=== PATIENT | female | born 1955 | race Caucasian/White ===

== ENCOUNTER → 2016-06-03 | Outpatient (CLI) | payer BC ==
[~2016-06-03] MED LIST: MODA100T17 PO
== END | disposition home or self-care (01) ==
LOC: C.PAPS 16:49
PROVIDERS: ATTEND Physician Assistant
DX: Z01.419 Encounter for gynecological examination (general) (routine) without abnormal findings (principal); N95.2 Postmenopausal atrophic vaginitis

== ENCOUNTER → 2016-09-21 | Outpatient (CLI) | payer BC ==
[~2016-09-21] VITALS: Ht 162.6 cm; Wt 54.1 kg
[~2016-09-21] MED LIST changes: +MODA1TAB6 PO
[2016-09-21 14:21] VITALS: BP 130/75; PULSE 75; Ht 162.6 cm; Wt 54.1 kg
== END | disposition home or self-care (01) ==
LOC: C.NEUR 14:05
PROVIDERS: ATTEND Internal Medicine Pulmonary Disease
DX: F51.11 Primary hypersomnia (principal); F41.9 Anxiety disorder, unspecified; A69.20 Lyme disease, unspecified; I83.93 Asymptomatic varicose veins of bilateral lower extremities

== ENCOUNTER 2016-12-24 11:04 | Emergency (ER) | payer BC ==
[~2016-12-24] VITALS: Ht 162.6 cm; Wt 55.9 kg
[2016-12-24 11:08] VITALS: TEMP 36.8; Ht 162.6 cm; Wt 55.9 kg
[2016-12-24 11:22] VITALS: O2SAT 97
[2016-12-24 12:04] LABS: BASO % 0.3 %; BASO ABS # 0.03 K/uL (0-0.2); COMPLETE YES; EOS % 0.9 %; HEMATOCRIT 40.2 % (37-47); IG% 0.1 %; LYMPH ABS # 1.35 K/uL (1.2-3.4); MEAN CELL VOLUME 89.9 fL (80-100); MEAN CORPUSCULAR HEMOGLOBIN 30.9 pg (25-34); MEAN CORPUSCULAR HGB CONC 34.3 g/dl (32-36); MEAN PLATELET VOLUME 10.1 fL (7.4-10.4); MONO % 6.1 %; NEUT % 77.6 %; PLATELET COUNT 210 K/uL (130-400); RED BLOOD COUNT 4.47 M/uL (4.2-5.4)
[2016-12-24 12:06] LABS: URINE APPEARANCE CLEAR (CLEAR); URINE BILIRUBIN NEG (NEG); URINE COLOR YELLOW; URINE NITRITE NEG (NEG); URINE PH 7.5 (4.5-7.5); URINE SPECIFIC GRAVITY 1.008 (1.000-1.030); UROBILINOGEN NEG (NEG)
[2016-12-24 12:10] LABS: MANUAL MICROSCOPIC REQUIRED? NO; REVIEW REQ? NO
[2016-12-24 12:15] LABS: PARTIAL THROMBOPLASTIN RATIO 1.1; PROTHROMBIN TIME (PATIENT) 10.4 SECONDS (9.0-12.0)
[2016-12-24 12:23] LABS: ALB/GLOB RATIO 1.1 (0.9-2); ALKALINE PHOSPHATASE 48 U/L (45-117); ALT/SGPT 29 U/L (12-78); AST/SGOT 20 U/L (15-37); BLOOD UREA NITROGEN 11 mg/dl (7-18); BUN/CREATININE RATIO 14.3 (10-20); CALCIUM 8.6 mg/dl (8.5-10.1); CARBON DIOXIDE 27 mmol/L (21-32); CHLORIDE 98 mmol/L (98-107); CREATININE 0.77 mg/dl (0.60-1.20); GLUCOSE 99 mg/dl (70-99); POTASSIUM 3.6 mmol/L (3.5-5.1); SODIUM 135 mmol/L (136-145)
--- NOTE | 2016-12-24 13:03 | EMERGENCY ROOM VISIT NOTE ---
History First contact with patient: 11:20 Chief Complaint: ABDOMINAL PAIN Stated Complaint: ABD PAIN,BLADDER INF,DIZZY,HEADACHE,BLOOD IN EAR Nursing Triage Summary: pt awoke this am with lower abd pain, "felt like UTI" pt reports blood in ear and dizzy feeling denies any n/v History of Present Illness Patient is a 61-year-old white female who presents to the emergency department for several complaints, first her primary concern is some lower abdominal discomfort. She's had some minor twinges of low suprapubic pain for a couple of days, but this morning they were worse. She describes it as a very strong, sharp pain in the lower abdomen that did not radiate. She states that it "felt like a UTI." She denies dysuria, frequency, urgency or hematuria however. Today she states the pain was so strong that it "stopped her in her tracks." She denies any associated nausea or vomiting. No changes in her bowel movements. She presently rates her discomfort a 0/10. She has had a colonoscopy in the past, reports that it was benign. She is on Modafinil for hypersomnia and did not take this today. Patient secondly she also notes that she was intermittently dizzy this morning. She describes it as a was the sensation. She denies feeling near syncopal. She has a mild generalized headache. She denies any chest pain, palpitations or shortness of breath. Thirdly, patient reports that after she showered, she cleaned her years with a Q -tip, and noted blood on the Q-tip from the right ear. She also states that when she touched the outer canal, there was blood. She denies any ear pain or changes in her hearing. She does not have any symptoms in the left ear. Patient's PCP has left the area, and she is going to try to get in with her OB/ [facility] for evaluation of the abdominal discomfort, but because of her other symptoms they sent her to the emergency department. Review of Systems Review of systems as per HPI. All other systems reviewed were negative. 10 systems reviewed. Past Medical/Surgical History Medical Problems: (1) Anxiety Disorder, Unspecified (2) Organic Hypersomnia, Unspecified Electronic medical records are reviewed and summarized as above/below. See Problem List. Social History Smoking Status: Former Smoker Occupation Status: employed Current/Historical Medications Scheduled Modafinil (Provigil), 1 TAB PO DAILY Physical Exam Vital Signs Date Time Temp Pulse Resp B/P (MAP) Pulse Ox O2 Delivery O2 Flow Rate FiO2 12/24/16 13:11 65 18 106/65 97 Room Air 12/24/16 12:36 65 16 108/65 97 Room Air 12/24/16 12:11 60 12/24/16 11:22 97 Room Air 12/24/16 11:18 67 128/68 70 137/73 69 124/77 12/24/16 11:08 36.8 71 20 135/65 97 Room Air Physical Exam CONSTITUTIONAL: Patient is a well-appearing 61-year-old white female who is awake and alert and in no acute distress EYES: Pupils equal, round, reactive to light and accommodation. EOMs intact without nystagmus. Sclera are anicteric. ENT: Tympanic membranes intact, with normal landmarks. There is some bright red blood in the inferior of the right ear canal. There is no active bleeding. No obvious source. External canals are clear. Oral and nasopharynx are clear. Mucous membranes are moist, no lesions, tongue and gums appear normal. NECK: No bruits auscultated. Supple without lymphadenopathy. No thyromegaly. No meningeal signs. Full active range of motion without discomfort. CARDIOVASCULAR: Regular rate and rhythm, with normal S1 and S2, no murmur or gallop or rub is heard. No carotid bruits auscultated. No JVD. Peripheral pulses easy to palpable. RESPIRATORY: Breath sounds equal and clear to auscultation without wheezes, rales, or rhonchi heard. Full and equal chest expansion without accessory muscle use or retractions. GI: Bowel sounds are present. Abdomen is soft, nontender, nondistended. No organomegaly. No pulsatile masses. No guarding or rebound. MUSCULOSKELETAL: Full range of motion of extremities x 4 with good strength. No cyanosis, edema, joint tenderness or swelling. No deformity. INTEGUMENTARY: No lesions or rash, normal skin turgor. NEUROLOGICAL: Alert, oriented, and cooperative. Cranial nerves, sensation and strength grossly intact. Pupils round, equal, and react to light, EOMs are full. Normal gait. Negative Romberg and pronator drift. Finger to nose testing is within normal limits. LYMPH: No lymphadenopathy. Medical Decision & Procedures Laboratory Results 12/24/16 11:25 Red Blood Count 4.47, Mean Corpuscular Volume 89.9, Mean Corpuscular Hemoglobin 30.9, Mean Corpuscular Hemoglobin Concent 34.3, Mean Platelet Volume 10.1, Neutrophils (%) (Auto) 77.6, Lymphocytes (%) (Auto) 15.0, Monocytes (%) (Auto) 6.1, Eosinophils (%) (Auto) 0.9, Basophils (%) (Auto) 0.3, Neutrophils # (Auto) 6.98, Lymphocytes # (Auto) 1.35, Monocytes # (Auto) 0.55, Eosinophils # (Auto) 0.08, Basophils # (Auto) 0.03 12/24/16 11:25 Test 12/24/16 11:20 12/24/16 11:25 Urine Color YELLOW Urine Appearance CLEAR (CLEAR) Urine pH 7.5 (4.5-7.5) Urine Specific [place] 1.008 (1.000-1.030) Urine Protein NEG (NEG) Urine Glucose (UA) NEG (NEG) Urine Ketones NEG (NEG) Urine Occult Blood NEG (NEG) Urine Nitrite NEG (NEG) Urine Bilirubin NEG (NEG) Urine Urobilinogen NEG (NEG) Urine Leukocyte Esterase NEG (NEG) White Blood Count 9.00 K/uL (4.8-10.8) Red Blood Count 4.47 M/uL (4.2-5.4) Hemoglobin 13.8 g/dL (12.0-16.0) Hematocrit 40.2 % (37-47) Mean Corpuscular Volume 89.9 fL (80-100) Mean Corpuscular Hemoglobin 30.9 pg (25-34) Mean Corpuscular Hemoglobin Concent 34.3 g/dl (32-36) Platelet Count 210 K/uL (130-400) Mean Platelet Volume 10.1 fL (7.4-10.4) Neutrophils (%) (Auto) 77.6 % Lymphocytes (%) (Auto) 15.0 % Monocytes (%) (Auto) 6.1 % Eosinophils (%) (Auto) 0.9 % Basophils (%) (Auto) 0.3 % Neutrophils # (Auto) 6.98 K/uL (1.4-6.5) Lymphocytes # (Auto) 1.35 K/uL (1.2-3.4) Monocytes # (Auto) 0.55 K/uL (0.11-0.59) Eosinophils # (Auto) 0.08 K/uL (0-0.5) Basophils # (Auto) 0.03 K/uL (0-0.2) RDW Standard Deviation 41.9 fL (36.4-46.3) RDW Coefficient of Variation 12.8 % (11.5-14.5) Immature Granulocyte % (Auto) 0.1 % Immature Granulocyte # (Auto) 0.01 K/uL (0.00-0.02) Prothrombin Time 10.4 SECONDS (9.0-12.0) Prothromb Time International Ratio 1.0 (0.9-1.1) Activated Partial Thromboplast Time 27.3 SECONDS (21.0-31.0) Partial Thromboplastin Ratio 1.1 Anion Gap 10.0 mmol/L (3-11) Est Creatinine Clear Calc Drug Dose 64.6 ml/min Estimated GFR () 95.2 Estimated GFR (Non- 82.2 BUN/Creatinine Ratio 14.3 (10-20) Calcium Level 8.6 mg/dl (8.5-10.1) Total Bilirubin 0.6 mg/dl (0.2-1) Aspartate Amino Transf (AST/SGOT) 20 U/L (15-37) Alanine Aminotransferase (ALT/SGPT) 29 U/L (12-78) Alkaline Phosphatase 48 U/L (45-117) Troponin I < 0.015 ng/ml (0-0.045) Total Protein 7.1 gm/dl (6.4-8.2) Albumin 3.7 gm/dl (3.4-5.0) Globulin 3.4 gm/dl (2.5-4.0) Albumin/Globulin Ratio 1.1 (0.9-2) Thyroid Stimulating Hormone (TSH) 1.370 uIu/ml (0.300-4.500) ED Course The patient was seen and evaluated as above. She is concerned that she could' ve a UTI. Urine sample was dipped and was clear, was however sent for microscopy. Further workup was discussed with the patient including chest x-ray , EKG and laboratory studies. She is declining EKG and chest x-ray. I did discuss with her that I could not fully evaluate her symptoms without these tests, and she understands. Orthostatics had been performed, and were negative. She was agreeable to blood work. CBC with differential, CMP, coags, TSH, and urinalysis were performed. Laboratory studies were unremarkable. Urine microscopy is completely clear. H&H normal. White count is not elevated. Electrolytes, renal functions and liver functions are normal. TSH is indicative of a euthyroid state, and troponin is negative 1. All laboratory studies were reviewed with the patient. She is declining any additional testing. She does appear to have a superficial scratch to the right ear canal which explains the bleeding that she had noted. Her abdominal exam is completely benign. Urinalysis is not indicative of UTI. She does not want to pursue any additional testing at this time, and will follow-up at her PCP office this week for recheck. She was certainly encouraged to return to the emergency department at any point if her symptoms worsen and she would like to have them reevaluated. Patient remained hemodynamically stable while in the emergency department. She was discharged home in good condition. Differential diagnoses entertained included UTI, pyelonephritis, cystitis, bowel section, perforation, constipation, arrhythmia, ACS, electrolyte or metabolic abnormality, orthostasis, dehydration, among others. Medical Decision See emergency department course. Medication Reconcilliation Current Medication List: was personally reviewed by me Blood Pressure Screening Patient's blood pressure: Normal blood pressure Impression Primary Impression: Abdominal pain Departure Information Referrals Stacy Hughes M.D. (PCP) Patient Instructions My [facility] Additional Instructions Ibuprofen(Motrin, Advil) may be used for fever or pain. Use 600mg every six hours as needed. Take with food. Avoid using more than 2400mg in a 24 hour period. Do not use 2400mg per day for more than three consecutive days without physician direction. Prolonged inappropriate use can lead to stomach upset or ulcers. This is available over the counter and typically comes in 200mg tablets. (AND/OR) Acetaminophen(Tylenol) may be used for fever or pain. Use 1000mg every eight hours as needed. Avoid using more than 3000mg in a 24 hour period. This is available over the counter. Read all the package inserts or medication information paperwork provided. If you have any questions or concerns call your primary provider, pharmacist or the ER for assistance. Rest and drink plenty of fluids as tolerated. Slow sips of water or sports drinks are recommended instead of large amounts all at once. Continue current medications. Once your stomach is settled start with a clear liquid diet (jello, soup broth, etc.) and then advance as tolerated. You should avoid full, heavy meals for about 24 hrs from the time your symptoms resolved. Return to the ER immediately for worsening or persistent abdominal pain, vomiting, fevers, chest pains, difficulty breathing, black or bloody stools, worsening of your condition, or as needed. Follow up with your primary physician in 1-2 days for a recheck of your current condition. Problem Qualifiers Primary Impression: Abdominal pain Abdominal location: lower abdomen, unspecified Qualified Codes: R10.30 - Lower abdominal pain, unspecified
[2016-12-24 13:11] VITALS: BP 106/65; PULSE 65; O2SAT 97
== END 2016-12-24 13:19 | disposition home or self-care (01) ==
LOC: C.EDB 11:06 → C.EDA 13:19
DX: R10.30 Lower abdominal pain, unspecified (principal); S00.411A Abrasion of right ear, initial encounter; X58.XXXA Exposure to other specified factors, initial encounter; G47.10 Hypersomnia, unspecified; F41.9 Anxiety disorder, unspecified; Z87.891 Personal history of nicotine dependence

== ENCOUNTER → 2017-07-19 | Outpatient (CLI) | payer BC ==
[~2017-07-19] MED LIST changes: -MODA100T17 PO; -MODA1TAB6 PO; +MODA200T42 PO
[2017-07-19 11:40] LABS: BASO % 0.6 %; BASO ABS # 0.02 K/uL (0-0.2); EOS % 6.9 %; EOS ABS # 0.23 K/uL (0-0.5); HEMATOCRIT 39.5 % (37-47); HEMOGLOBIN 13.4 g/dL (12.0-16.0); LYMPH % 37.6 %; LYMPH ABS # 1.26 K/uL (1.2-3.4); MEAN CELL VOLUME 92.3 fL (80-100); MEAN CORPUSCULAR HEMOGLOBIN 31.3 pg (25-34); MEAN CORPUSCULAR HGB CONC 33.9 g/dl (32-36); MEAN PLATELET VOLUME 10.7 fL (7.4-10.4); MONO % 7.8 %; MONO ABS # 0.26 K/uL (0.11-0.59); NEUT % 47.1 %; NEUT ABS # 1.58 K/uL (1.4-6.5); PLATELET COUNT 193 K/uL (130-400); RED CELL DISTRIBUTION WIDTH CV 13.3 % (11.5-14.5); WHITE BLOOD COUNT 3.35 K/uL (4.8-10.8)
[2017-07-19 12:08] LABS: ALBUMIN 3.7 gm/dl (3.4-5.0); ALT/SGPT 33 U/L (12-78); AST/SGOT 26 U/L (15-37); BLOOD UREA NITROGEN 12 mg/dl (7-18); CARBON DIOXIDE 27 mmol/L (21-32); CHOLESTEROL 183 mg/dl (0-200); CREATININE 0.76 mg/dl (0.60-1.20); GLUCOSE 88 mg/dl (70-99); SODIUM 138 mmol/L (136-145)
[2017-07-19 12:19] LABS: ALKALINE PHOSPHATASE 44 U/L (45-117); LDL CHOLESTEROL CALCULATED 99 mg/dl; TOTAL PROTEIN 7.1 gm/dl (6.4-8.2)
== END | disposition home or self-care (01) ==
LOC: C.LABBC 07:54
PROVIDERS: ATTEND Internal Medicine
DX: Z11.59 Encounter for screening for other viral diseases (principal); Z13.220 Encounter for screening for lipoid disorders; F43.23 Adjustment disorder with mixed anxiety and depressed mood; F51.11 Primary hypersomnia

== ENCOUNTER 2017-10-29 15:32 | Emergency (ER) | payer BC ==
[~2017-10-29] VITALS: Ht 160 cm; Wt 51.9 kg
[2017-10-29 15:38] VITALS: TEMP 36.7; Ht 160 cm; Wt 51.9 kg
[2017-10-29] MEDS ORDERED: LIDOCAINE 1% BUFFERED INJ 20 ML VIAL INFIL STA (15:50)
[2017-10-29] MEDS ORDERED: SERT1TAB88 PO (16:12)
[2017-10-29] MEDS ORDERED: CEPH500C2 PO (16:58)
[2017-10-29] MEDS ORDERED: HYDR-5688 PO (16:58)
[2017-10-29] MEDS ORDERED: NORCO 5/325MG HOME PACK PO STA (17:00)
[2017-10-29] MEDS ORDERED: CEPHALEXIN 500MG HOME PACK 1 EA BTL PO STA (17:00)
--- NOTE | 2017-10-29 17:00 | EMERGENCY ROOM VISIT NOTE ---
ED Visit Note First contact with patient: 15:41 Chief Complaint: "Cut on finger". History of Present Illness: This patient is a 62-year-old female who presents to the Emergency Department via private vehicle for evaluation of their left fifth digit laceration. Patient sustained the laceration while cutting honeydew , when she actually sliced the left fifth digit on the volar aspect. They report a moderate amount of bleeding initially. They do note some numbness at the distal extremity. They reports decreased range of motion of the affected digit, specifically inability to flex the left fifth digit. Patient rates her current discomfort as a 9/10. Patient is unsure of her tetanus status but declines further immunization. Medications: As noted below Allergies: None PMH: No pertinent SHx: Patient is employed locally as a physical therapist. ROS: All pertinent positive and negative review of systems are appropriately documented in the History of Present Illness. Physical Exam: VITAL SIGNS - Vital signs and nursing notes were reviewed. Stable. Afebrile. GENERAL -62-year-old female appearing her stated age who is in no acute distress. Communicates well with provider and answers questions appropriately. SKIN - There is a 1.5 cm long laceration noted to the ventral aspect of the left fifth digit just distal to the PIP joint in the transverse plane. The edges gape apart with traction. No foreign bodies appreciated. Upon further examination there is evidence of likely a tendon laceration. No bony injury. MUSCULOSKELETAL - Laceration as described above. +5/5 strength appreciated of the affected digit. Full range of motion of the affected digit. NEUROLOGIC -numbness appreciated at the distal aspect of the examination with decreased sensation. Vascularly intact. VASCULAR - Capillary refill was brisk. ED Course: Patient was seen and evaluated by myself. Risks and benefits of performing primary wound closure versus no repair were discussed with the patient who verbalizes understanding. X-ray offered of the finger and she declined. Verbal consent was obtained prior to performing the procedure. 4 cc of 1% buffered lidocaine without epinephrine was used to perform a digital block of the left fifth digit. The wound was cleansed and prepped in the typical sterile fashion utilizing normal saline and Betadine. The wound was sterilely draped. Once proper anesthetization was established, the wound was further examined and demonstrated suspected tendon involvement. The wound was copiously irrigated with normal saline and Betadine. I discussed this with the on-call hand specialist, Dr. Adames. He recommends Adaptic dressing, and he will see the patient in the office either Tuesday or Tuesday. Patient was informed upon this and was very happy. We did discuss whether or not to initiate antibiotic prophylaxis and the patient is concerned given the amount of bacteria that may present on the digitalis use it was not clean to cover the wound immediately. For this reason I will cover with Keflex. She also notes a great deal of pain and is concerned after the pain medication wears off and the finger. She was given a short prescription of Ben Bolt. She was educated upon benefit versus risk of this medication. The wound was closed using 4 simple, 5-0 nylon sutures with the wound edges being well approximated. Patient tolerated the procedure well. No complications were met. The wound was cleansed and dressed with an Adaptic bulky dressing with metal finger splint. Patient tolerated this very well. Keflex and Ben Bolt via home pack as well as prescription sent. She is to call first thing Tuesday to schedule follow-up with a hand specialist or return with worsening. She declined tetanus immunization. Patient received their Adacel vaccination. Patient educated on worrisome symptoms for return visit to the Emergency Department. Patient discharged to home in good condition. No red flags in the [place] drug monitoring system. In the evaluation and treatment of this patient, the following differential diagnoses were considered: Finger Fracture, Finger Dislocation, Finger Sprain, Finger Contusion, [place] Finger, tendon involvement, or Mallet Finger. Problem List Medical Problems: (1) Anxiety Disorder, Unspecified Status: Chronic (2) Organic Hypersomnia, Unspecified Status: Chronic Current/Historical Medications Scheduled Cephalexin Monohydrate (Keflex), 500 MG PO TID Modafinil (Provigil), 100 MG PO DAILY Sertraline HCl (Sertraline HCl), 12.5-25 MG PO DAILY Scheduled PRN Hydrocodone/Acetaminophen 5MG/325MG (Ben [place]olt 5MG/325MG), 1 TABLET PO Q6 PRN for Pain Allergies Coded Allergies: No Known Allergies (Unverified , 10/29/17) Vital Signs Date Time Temp Pulse Resp B/P (MAP) Pulse Ox O2 Delivery O2 Flow Rate FiO2 10/29/17 17:07 64 16 106/66 96 10/29/17 15:38 36.7 78 18 116/68 96 Room Air Departure Information Impression Primary Impression: Laceration Dispostion Home / Self-Care Condition GOOD Prescriptions Hydrocodone/Acetaminophen 5MG/325MG (Ben [place] 5MG/325MG) Tab 1 TABLET PO Q6 Y for Pain, #9 TAB For Initial Treatment Prov: Neri Dueñas PA-C 10/29/17 Cephalexin Monohydrate (KEFLEX) 500 Mg Cap 500 MG PO TID for 5 Days, #15 CAP Prov: Neri Dueñas PA-C 10/29/17 Referrals RV. Weber MD (PCP) Leo Adames MD Patient Instructions My [facility] Additional Instructions Discharge Instructions: You have received four sutures on your finger. These sutures are NOT dissolvable and WILL need to be removed by a health care provider in 14 days, however orthopedics will likely be the one to take care of this. You can return to the Emergency Department or contact your Primary Care Provider to have the sutures removed. Keflex 500 mg every 8 hours. Your given the first 24 hour supply here with remainder sent to your pharmacy. Ben Bolt, 1 tablet every 6 hours as needed for pain. Please do not drive this medication. This is a narcotic medication. Please do not take Tylenol with this. Please wear the splint for comfort until the sutures are removed. Please do daily dressing changes as we discussed. Please call Dr. Adames's office first thing Tuesday. He will either see you Tuesday in [place] or Tuesday here in [place]. Please inform them that you were seen in the emergency department, and that I, Neri, talked to Dr. Adames personally and he would like to see you either Tuesday or Tuesday. Proper wound care is essential for adequate wound healing and infection prevention. You can shower and clean the wound with soap and water. Do not scour over the wound, pat dry with a towel. Do not submerse the wound (i.e. bathe or dish wash) until the sutures have been removed. You can use an antibiotic ointment with a dressing over the wound for the next 3-4 days. After this time you may leave the wound dry and open to the air. If crust develops over the wound you can use a Q-tip to apply a 1:1 peroxide:water solution to clean the wound. Look for signs of infection of the wound including: increased pain, swelling, foul discharge, streaking, or increased temperature. If any of these are noticed you should return to the Emergency Department for further assessment and treatment. As with any laceration you may have received nerve damage to the surrounding tissues. This damage may or may not be permanent. You should keep the area covered with sunscreen for the first 6 months to 1 year when at risk for exposure to help minimize scarring. You can also use scar reducing creams or Vitamin E oil to help minimize scarring. For pain control, you can use the following [id number] medicines (if >12 yo): - Regular strength (325mg/tab) Tylenol (acetaminophen) 2 tabs every 4-6 hours as needed. Do not exceed 12 tablets in a 24 hour period. Avoid taking more than 3 grams (3000 mg) of Tylenol per day. This includes any other sources of acetaminophen you may take on a regular basis. Please do not take the pain medication with Tylenol as already contains a. - Regular strength (200 mg/tab) Advil (ibuprofen) 1-2 tabs every 4-6 hours as needed. Do not exceed a dose of 3200 mg per day. Return to the emergency department if your symptoms worsen despite treatment course outlined above.
[2017-10-29 17:07] VITALS: BP 106/66; PULSE 64; O2SAT 96
== END 2017-10-29 17:10 | disposition home or self-care (01) ==
LOC: C.EDB 15:33 → C.EDD 17:10
DX: S61.217A Laceration without foreign body of left little finger without damage to nail, initial encounter (principal); W26.0XXA Contact with knife, initial encounter